=== PATIENT | male | born 1990 | race Caucasian/White ===

== ENCOUNTER 2019-07-23 16:02 | Emergency (ER) | payer MEDICAID ==
[~2019-07-23] VITALS: Ht 177.8 cm; Wt 95.3 kg
[2019-07-23] MEDS ORDERED: KETOROLAC TROMETH 30 MG/ML 1ML VIAL IV ONE (20:00)
[2019-07-23] MEDS ORDERED: methylPREDNISolone SOD SUCC 125 MG/2 ML VL IV ONE (20:00)
[2019-07-23 20:31] VITALS: BP 120/80
== END 2019-07-23 20:45 | disposition home or self-care (01) ==
LOC: EDUNIT# 16:02 → EDBD 16:02 → ER 16:07
DX: S30.1XXA Contusion of abdominal wall, initial encounter (principal); S00.01XA Abrasion of scalp, initial encounter; J45.909 Unspecified asthma, uncomplicated; F17.210 Nicotine dependence, cigarettes, uncomplicated; V29.49XA Motorcycle driver injured in collision with other motor vehicles in traffic accident, initial encounter; Y93.89 Activity, other specified; Y99.8 Other external cause status; Y92.488 Other paved roadways as the place of occurrence of the external cause
CPT/HCPCS: 70450; 72192; 96374; 96375; 99284; J1885; J2930

== ENCOUNTER 2020-03-09 20:41 | Emergency (ER) | payer MEDICAID ==
[~2020-03-09] VITALS: Ht 167.6 cm; Wt 99.8 kg
[2020-03-10] MEDS ORDERED: IBUPROFEN 800 MG TAB PO ONE (01:45)
[2020-03-10 01:58] VITALS: BP 111/79
== END 2020-03-10 02:09 | disposition home or self-care (01) ==
LOC: ER 20:42
DX: M79.641 Pain in right hand (principal); J45.909 Unspecified asthma, uncomplicated; W18.39XA Other fall on same level, initial encounter; Y93.89 Activity, other specified; Y92.89 Other specified places as the place of occurrence of the external cause; Y99.8 Other external cause status
CPT/HCPCS: 73130

== ENCOUNTER 2021-07-16 21:01 | Emergency (ER) | payer MEDICAID ==
[~2021-07-16] VITALS: Ht 167.6 cm; Wt 99.8 kg
[2021-07-16 21:04] VITALS: BP 144/78
== END 2021-07-17 00:40 | disposition home or self-care (01) ==
LOC: ER 21:03
DX: S93.401A Sprain of unspecified ligament of right ankle, initial encounter (principal); J45.909 Unspecified asthma, uncomplicated; F17.210 Nicotine dependence, cigarettes, uncomplicated; X50.1XXA Overexertion from prolonged static or awkward postures, initial encounter; Y93.61 Activity, american tackle football; Y92.89 Other specified places as the place of occurrence of the external cause; Y99.8 Other external cause status
CPT/HCPCS: 73610

== ENCOUNTER 2021-09-11 14:42 | Emergency (ER) | payer MEDICAID, OTHER ==
[~2021-09-11] VITALS: Ht 167.6 cm; Wt 94.3 kg
[2021-09-11 17:20] VITALS: BP 129/89
== END 2021-09-11 17:40 | disposition home or self-care (01) ==
LOC: ER 14:42 → EDBD 14:42 → ER 17:40
DX: S20.212A Contusion of left front wall of thorax, initial encounter (principal); J45.909 Unspecified asthma, uncomplicated; F17.210 Nicotine dependence, cigarettes, uncomplicated; V43.52XA Car driver injured in collision with other type car in traffic accident, initial encounter; Y93.89 Activity, other specified; Y92.89 Other specified places as the place of occurrence of the external cause; Y99.8 Other external cause status
CPT/HCPCS: 71046